=== PATIENT | male | born 1975 | race Caucasian/White ===

== ENCOUNTER 2020-10-30 16:34 | Outpatient (REF) | payer OTHER, SELFPAY | END 2020-10-30 16:35 | disposition home or self-care (01) | LOC: HO.LAB 16:34 | PROVIDERS: Visit Provider Internal Medicine | DX: Z20.828 Contact with and (suspected) exposure to other viral communicable diseases (principal) | CPT/HCPCS: 36415; C9803; U0003 ==

== ENCOUNTER 2020-12-22 14:07 | Outpatient (REF) | payer OTHER, SELFPAY | END 2020-12-22 14:08 | disposition home or self-care (01) | LOC: HO.LAB 14:07 | PROVIDERS: Visit Provider Internal Medicine | DX: Z20.822 Contact with and (suspected) exposure to COVID-19 (principal) | CPT/HCPCS: 36415; C9803; U0003; U0005 ==

== ENCOUNTER 2021-08-21 11:00 | Outpatient (REF) | payer OTHER, SELFPAY ==
[2021-08-21 11:40] LABS: COVID-19 Test Negative (Negative)
== END 2021-08-21 11:01 | disposition home or self-care (01) ==
LOC: HO.LAB 11:00
PROVIDERS: Visit Provider Internal Medicine
DX: Z20.822 Contact with and (suspected) exposure to COVID-19 (principal)
CPT/HCPCS: 36415; 87635; C9803

== ENCOUNTER 2022-03-19 05:39 | Emergency (ER) | payer OTHER, SELFPAY ==
[2022-03-19 05:49] VITALS: BP 148/92; PULSE 104; RESP 18; TEMP 36.8; O2SAT 98; BMI 26.8
[2022-03-19 06:15] VITALS: BP 180/90; PULSE 76; RESP 12; O2SAT 99
--- NOTE | 2022-03-19 06:17 | ECG_ITS ---
Test Reason : CHEST PAIN Blood Pressure : / mmHG Vent. Rate : 086 BPM Atrial Rate : 086 BPM P-R Int : 168 ms QRS Dur : 100 ms QT Int : 384 ms P-R-T Axes : 076 026 029 degrees QTc Int : 459 ms Normal sinus rhythm with sinus arrhythmia Possible Left atrial enlargement Incomplete right bundle branch block Anterior infarct , age undetermined Abnormal ECG No previous ECGs available Referred By: Generic ED Physician Electronically Signed By:Ag Barron
[2022-03-19] MEDS: ondansetron HCL 4 MG/2 ML VIAL IVPUSH (06:19)
[2022-03-19] MEDS: 0.9 % Sodium Chloride 1,000 ML 999 ML IV ×2 (06:19→07:28)
[2022-03-19 06:30] LABS: Basophils Percent Auto 0.2 % (0-2); Hematocrit 43.8 % (42.0-52.0); Hemoglobin 14.4 g/dl (14.0-18.0); Imm Gran Abs Auto 0.09 X10*3/uL (0.00-0.03); Imm Gran Pct Auto 0.7 % (0.0-0.4); Lymphocytes Absolute Auto 0.8 X10*3/uL (1.2-4.9); Lymphocytes Percent Auto 6.6 % (20-40); MANUAL DIFF FLAG SCAN; Mean Corpuscular HGB Conc 32.9 g/dl (31.0-36.0); Mean Corpuscular Hemoglobin 26.1 pg (27.0-33.0); Mean Corpuscular Volume 79.3 fL (80.0-98.0); Monocytes Absolute Auto 0.3 X10*3/uL (0.1-1.2); Monocytes Percent Auto 2.2 % (2-11); Neutrophils Absolute Auto 11.2 x10*3/uL (2.0-8.3); Neutrophils Percent Auto 90.3 % (45-73); Platelet Count 205 X10*3/uL (160-400); Red Blood Count 5.52 X10*6/uL (4.60-5.80); Red Cell Distribution Width 12.3 % (11.0-16.0); SCAN SMEAR FLAG 1; White Blood Count 12.3 X10*3/uL (4.8-10.8)
[2022-03-19 06:48] LABS: Anion Gap 21 (12-20); Blood Urea Nitrogen 14 mg/dL (9-16); Calcium 10.4 mg/dL (8.4-10.2); Carbon Dioxide 22 mmol/L (22-29); Chloride 99 mmol/L (96-108); Creatinine Clr Calc Pharmacy 74.8; Estimated Glomerular Filt Rate 58; Glucose Random 546 mg/dL (60-115); Potassium 5.4 mmol/L (3.3-5.1); Sodium 137 mmol/L (135-145)
[2022-03-19 06:56] LABS: Alanine Aminotransferase 37 U/L (0-40); Albumin Level 4.6 g/dL (3.5-5.0); Alkaline Phosphatase 146 U/L (39-117); Aspartate Amino Transferase 26 U/L (5-37); Bilirubin Direct 0.2 mg/dL (0.0-0.5); Bilirubin Total 0.5 mg/dL (0.0-1.0); Lipase 11 U/L (8-78); Total Protein 8.6 g/dL (6.5-8.0)
[2022-03-19 07:04] LABS: COVID-19 Test Negative (Negative); IDNOW Serial# 55D5AD1C
[2022-03-19 07:11] LABS: SLIDE REVIEW VERIFIED
--- NOTE | 2022-03-19 07:16 | ED.ABDPAIN ---
HPI - Abdominal Pain General Chief Complaint: Nausea/Vomiting/Diarrhea Stated Complaint: Vomiting/Chilld/Abd pain Time Seen by Provider: 03/19/22 05:58 Source: patient Mode of arrival: ambulatory Limitations: no limitations History of Present Illness HPI narrative: 47-year-old male who presents emergency department for evaluation of abdominal pain, nausea, vomiting and diarrhea. The patient is a diabetic and he takes metformin. He states that last night his friend brought him snacks any ate cookies, Ring Dings and candy. He states that around 23:00 hours he had a sudden onset of vomiting. States he vomited multiple times. He then developed abdominal pain. He points to his epigastric area when asked to localize the pain. Describes as a constant, burning sensation which is 10/10 at its worse and is currently 6/10 at the time of evaluation. He states that he had 1 episode of watery diarrheal stool. He did not notice any blood in the stool or his emesis. He denied fever. He did have shaking chills. He denied rhinorrhea, sore throat, cough, chest pain. He states that when he vomits he feels short of breath. He denied dyspnea on exertion. The patient complained of nausea, vomiting and diarrhea. He had urinary frequency with no dysuria. Patient states he has a history of opiate use disorder and is on methadone. He states he missed his methadone several days prior and injected 5 bags of heroin. MD elicited complaint: abdominal pain Onset (ago): hour(s) (8) Pain Consistency: constant Location: epigastric Severity: severe Pain scale (0-10): 1 Quality: burning Radiation: none Migration to: no migration Exacerbating factors: nothing Relieving factors: nothing Associated symptoms: nausea, vomiting, diarrhea, chills and other (Urinary frequency) Related Data Home Medications Medication Instructions Recorded Confirmed metformin 1,000 mg tablet 1 tab PO BID 03/19/22 03/19/22 Previous Rx's Medication Instructions Recorded ondansetron 4 mg disintegrating 4 mg PO Q6-8H PRN #14 tab 03/19/22 tablet Allergies Allergy/AdvReac Type Severity Reaction Status Date / Time No Known Allergies Allergy Verified 03/19/22 06:36 Review of Systems Review of Systems Yes all other systems are reviewed and are negative [facility] Past Medical History [facility] Narrative: Past medical history: Diabetes mellitus, opiate use disorder (heroin). Past surgical history: Cholecystectomy. Social history: He smokes 1/2 pack of cigarettes per day times 39 years. He denies alcohol use. He has history of opiate use disorder and he states that he injected heroin 2 or 3 days prior, used 5 bags. He is in a methadone program. Social History Social History Alcohol intake: never Patient Tobacco Use Status: Current everyday Tobacco user Use of substances other than those prescribed or required for medical reasons: No Advance Directives: No Physical Exam ED Vital Signs: Vital Signs - 24 hr 03/19/22 05:49 03/19/22 06:15 03/19/22 07:37 Temperature 98.3 F 99.3 F Pulse Rate 104 H 76 84 Respiratory Rate 18 12 23 H Blood Pressure 148/92 H 180/90 H 186/98 H Pulse Oximetry 98 99 97 BMI result Body Mass Index 26.8 Const General: cooperative and no acute distress Orientation/consciousness: oriented to person and oriented to place Limitations: no limitations HENMT Head: Yes normal to inspection, Yes normocephalic and Yes atraumatic Ears: external ears normal General nose exam: Normal external nose present Face and sinus: Yes normal facial exam Mouth: Normal oral and palatal mucosa present Throat: Yes posterior oropharynx normal Eyes General: appearance normal, both eyes and all related structures Pupils: Equal, round and reactive pupils present Neck Neck: Yes normal visual inspection, Yes no lymphadenopathy, Yes trachea midline and Yes supple Chest Chest palpation & inspection: normal inspection of the chest and normal palpation of entire chest wall Resp Effort & Inspection: normal respiratory effort and able to speak in complete sentences Auscultation: clear to auscultation bilaterally Cardio Rate: regular rate Rhythm: regular rhythm Heart sounds: S1 normal heart sound present, S2 normal heart sound present and no murmurs GI Inspection: Yes normal to inspection Palpation (GI): Soft to palpation, Tenderness to palpation present (GI) in the epigastrum (Moderate) and no guarding Auscultation: normal bowel sounds General: Yes no CVA tenderness Back/Spine/Pelvis Back: no CVA tenderness Skin General skin exam: no rashes or lesions noted Neuro General: oriented to person and oriented to place Cranial nerves: Yes CN's II-XII intact bilaterally and Yes Equal, round and reactive pupils present Cognition (Neuro): normal cognition Motor exam (neuro): 5/5 motor strength present throughout Extrem General: Yes normal to inspection Psych Appearance: grossly normal Speech and movement: Normal speech and movement present Affect: normal affect Attitude: cooperative Thought process: Normal thought process present Thought content: Normal thought content present Course Course Course Narrative: 47-year-old male who presents emergency department for evaluation of abdominal pain, nausea, vomiting and diarrhea. Patient's symptoms started yesterday at 23:00 hours. Patient also has history of diabetes he did have a high sugar load last night as he ate multiple snacks including cookies, Ring Dings and candy. Vital signs revealed an elevated blood pressure of 148/92, elevated pulse of 102, otherwise normal. The patient did have epigastric tenderness otherwise exam was unremarkable. Differential includes was not limited to gastritis, gastroenteritis, viral syndrome. The laboratory evaluation was ordered. Patient was initially treated with Zofran and IV normal saline with only minimal improvement his pain and his nausea. Patient was ordered to get Reglan 10 mg IV, Benadryl 50 mg IV, morphine 4 mg IV. Patient did have an elevated glucose of 546 and was ordered to get regular insulin 5 units IV. Laboratory evaluation: Elevated potassium 5.4, elevated glucose 146, elevated alk-phos 146. Normal lipase 11. 0840: Point of care glucose did improved to 335. The patient is feeling better, but he is having epigastric tenderness and discomfort therefore he is ordered to get a GI cocktail of viscous lidocaine 10 cc, 10 cc and Maalox 30 cc orally. Patient will be discharged home with a prescription for Zofran. Patient most likely has an acute viral syndrome. MDM - Abdominal Pain Lab Data Result diagrams: 03/19/22 06:22 03/19/22 06:22 Labs: Lab Results 03/19/22 03/19/22 03/19/22 Range/Units 06:22 06:22 06:22 WBC 12.3 H (4.8-10.8) X10*3/uL RBC 5.52 (4.60-5.80) X10*6/uL Hgb 14.4 (14.0-18.0) g/dl Hct 43.8 (42.0-52.0) % MCV 79.3 L (80.0-98.0) fL MCH 26.1 L (27.0-33.0) pg MCHC 32.9 (31.0-36.0) g/dl RDW 12.3 (11.0-16.0) % Plt Count 205 (160-400) X10*3/uL MPV 12.0 (9.4-12.4) fL Immature Gran % (Auto) 0.7 H (0.0-0.4) % Neut % (Auto) 90.3 H (45-73) % Lymph % (Auto) 6.6 L (20-40) % [place] % (Auto) 2.2 (2-11) % Eos % (Auto) 0.0 (0-4) % Baso % (Auto) 0.2 (0-2) % Lymph # (Auto) 0.8 L (1.2-4.9) X10*3/uL [place] # (Auto) 0.3 (0.1-1.2) X10*3/uL Eos # (Auto) 0.0 (0.0-0.4) X10*3/uL Baso # (Auto) 0.0 (0.0-0.2) X10*3/uL Abs Immat Gran (auto) 0.09 H (0.00-0.03) X10*3/uL Absolute Neuts (auto) 11.2 H (2.0-8.3) x10*3/uL Absolute Nucleated RBC 0.000 (0.0-0.012) X10*3/uL Nucleated RBC % (auto) 0.0 (0.0-0.2) /100WBC Smear Tech's Comments VERIFIED Sodium 137 (135-145) mmol/L Potassium 5.4 H (3.3-5.1) mmol/L Chloride 99 (96-108) mmol/L Carbon Dioxide 22 (22-29) mmol/L Anion Gap 21 H (12-20) BUN 14 (9-16) mg/dL Creatinine 1.31 (0.5-1.4) mg/dL Estim Creat Clear Calc 74.8 Estimated GFR 58 POC Glucose (60-115) mg/dL Random Glucose 546 H* (60-115) mg/dL Calcium 10.4 H (8.4-10.2) mg/dL Total Bilirubin 0.5 (0.0-1.0) mg/dL Direct Bilirubin 0.2 (0.0-0.5) mg/dL AST 26 (5-37) U/L ALT 37 (0-40) U/L Alkaline Phosphatase 146 H (39-117) U/L Total Protein 8.6 H (6.5-8.0) g/dL Albumin 4.6 (3.5-5.0) g/dL Lipase 11 (8-78) U/L COVID-19 ([facility]) (Negative) COVID-19 Clin Com 03/19/22 03/19/22 Range/Units 06:36 08:18 WBC (4.8-10.8) X10*3/uL RBC (4.60-5.80) X10*6/uL Hgb (14.0-18.0) g/dl Hct (42.0-52.0) % MCV (80.0-98.0) fL MCH (27.0-33.0) pg MCHC (31.0-36.0) g/dl RDW (11.0-16.0) % Plt Count (160-400) X10*3/uL MPV (9.4-12.4) fL Immature Gran % (Auto) (0.0-0.4) % Neut % (Auto) (45-73) % Lymph % (Auto) (20-40) % [place] % (Auto) (2-11) % Eos % (Auto) (0-4) % Baso % (Auto) (0-2) % Lymph # (Auto) (1.2-4.9) X10*3/uL [place] # (Auto) (0.1-1.2) X10*3/uL Eos # (Auto) (0.0-0.4) X10*3/uL Baso # (Auto) (0.0-0.2) X10*3/uL Abs Immat Gran (auto) (0.00-0.03) X10*3/uL Absolute Neuts (auto) (2.0-8.3) x10*3/uL Absolute Nucleated RBC (0.0-0.012) X10*3/uL Nucleated RBC % (auto) (0.0-0.2) /100WBC Smear Tech's Comments Sodium (135-145) mmol/L Potassium (3.3-5.1) mmol/L Chloride (96-108) mmol/L Carbon Dioxide (22-29) mmol/L Anion Gap (12-20) BUN (9-16) mg/dL Creatinine (0.5-1.4) mg/dL Estim Creat Clear Calc Estimated GFR POC Glucose 335 H (60-115) mg/dL Random Glucose (60-115) mg/dL Calcium (8.4-10.2) mg/dL Total Bilirubin (0.0-1.0) mg/dL Direct Bilirubin (0.0-0.5) mg/dL AST (5-37) U/L ALT (0-40) U/L Alkaline Phosphatase (39-117) U/L Total Protein (6.5-8.0) g/dL Albumin (3.5-5.0) g/dL Lipase (8-78) U/L COVID-19 ([facility]) Negative (Negative) COVID-19 Clin Com See Note Discharge Plan Discharge Clinical Impression: Acute hyperglycemia Abdominal pain Qualifiers: Abdominal location: epigastric Qualified Code(s): R10.13 - Epigastric pain Vomiting Qualifiers: Vomiting type: unspecified Nausea presence: with nausea Qualified Code(s): R11.2 - Nausea with vomiting, unspecified Diarrhea Qualifiers: Diarrhea type: unspecified type Qualified Code(s): R19.7 - Diarrhea, unspecified Patient Disposition: Home, Self-Care Instructions: Viral Syndrome (ED), Abdominal Pain (ED) Additional Instructions: At this time, I believe that you symptoms are caused by a viral infection. Increase your fluid intake. Stay home and rest. Continue taking your metformin. Take Zofran ODT 4 mg pills, 1 pill dissolved in your mouth every 8 hours as needed for nausea and vomiting. Take ibuprofen 200 mg pills, 3 pills every 6 hours as needed for pain. Take Tylenol (acetaminophen) 500 mg pills, 2 pills every 4 to 6 hours as needed for pain. Follow-up with your doctor in 2 days. Please return to the emergency department if your symptoms get worse or if you develop any symptoms that are concerning to you. Prescriptions: New ondansetron 4 mg tablet,disintegrating 4 mg PO Q6-8H PRN (Reason: nausea and vomiting) Qty: 14 0RF No Action metformin 1,000 mg tablet 1 tab PO BID 0RF
[2022-03-19] MEDS: Metoclopramide HCl 10 MG/2 ML VIAL IVPUSH (07:26)
[2022-03-19] MEDS: diphenhydrAMINE HCL 50 MG/ML VIAL IVPUSH (07:28)
[2022-03-19] MEDS: Morphine Sulfate 4 MG/ML CARTRIDGE IVPUSH (07:28)
[2022-03-19] MEDS: Insulin Regular, Human 100 UNIT/ML 3 ML VIAL IVPUSH (07:29)
[2022-03-19 07:37] VITALS: BP 186/98; PULSE 84; RESP 23; TEMP 37.4; O2SAT 97
--- NOTE | 2022-03-19 08:20 | PC.NURSE ---
RN aware POC 335
[2022-03-19 08:21] LABS: Glucose, Whole Blood 335 mg/dL (60-115)
[2022-03-19] MEDS: Lidocaine HCl Viscous 2 % 15 ML SOLUTION 10 ML PO (08:53)
[2022-03-19] MEDS: PHENobarb/Hyoscy/Atropine/Scop 10 ML ELIXIR PO (08:54)
[2022-03-19] MEDS: Magnesium Hydrox/Alum Hydrox 30 ML ORAL.SUSP PO (08:54)
== END 2022-03-19 09:01 | disposition home or self-care (01) ==
PROVIDERS: Emergency Medicine; Emergency Provider Emergency Medicine Emergency Medical Services
DX: E11.65 Type 2 diabetes mellitus with hyperglycemia (principal); R11.2 Nausea with vomiting, unspecified; R35.0 Frequency of micturition; R19.7 Diarrhea, unspecified; R10.13 Epigastric pain; F11.10 Opioid abuse, uncomplicated; E11.9 Type 2 diabetes mellitus without complications; F17.210 Nicotine dependence, cigarettes, uncomplicated; Z20.822 Contact with and (suspected) exposure to COVID-19; Z71.6 Tobacco abuse counseling; Z79.899 Other long term (current) drug therapy; Z79.84 Long term (current) use of oral hypoglycemic drugs
CPT/HCPCS: 36415; 80048; 80076; 82947; 83690; 85025; 87635; 93005; 96361; 96374; 96375; 99284; J1200; J2270; J2405; J2765

== ENCOUNTER 2023-08-30 12:35 | Emergency (ER) | payer OTHER, SELFPAY ==
--- NOTE | ~2023-08-30 | US_ITS ---
EXAMINATION: US VENOUS ULTRASOUND WITH DOPPLER LOWER EXTREMITY, RIGHT CLINICAL INFORMATION: Right calf pain and swelling COMPARISON: None available. TECHNIQUE: Ultrasound of the deep veins is performed from the hip to the calf with compression sonography and color and pulse Doppler assessment. Spectral analysis with color-flow imaging is performed. FINDINGS: There is normal venous compression and respiratory variation and augmented flow. The visualized common femoral vein, superficial femoral vein, profunda femoral vein, popliteal vein, and the trifurcation region shows no evidence of deep venous thrombosis. There is no significant popliteal fossa cyst. US/US venous duplex LE RT IMPRESSION: No DVT demonstrated in the right lower extremity.
[2023-08-30 12:57] VITALS: BP 145/89; PULSE 92; RESP 18; TEMP 36.3; O2SAT 94; BMI 31.1
--- NOTE | 2023-08-30 12:58 | ED.EXTPRO ---
HPI - Extremity Problem General Chief complaint: General Medical Stated complaint: Bilateral foot/leg swelling Time Seen by Provider: 08/30/23 13:41 Source: patient and family Mode of arrival: ambulatory Limitations: no limitations History of Present Illness HPI Narrative: Patient comes to the emergency room complaining of right lower extremity erythema and swelling. Patient states that he has no pain, states that his leg has been feeling more warm than usual. Denies any injury. Patient denies any calf pain. Related Data Home Medications Medication Instructions Recorded Confirmed metformin 1,000 mg tablet 1 tab PO BID 03/19/22 03/19/22 Previous Rx's Medication Instructions Recorded ondansetron 4 mg disintegrating 4 mg PO Q6-8H PRN nausea and 03/19/22 tablet vomiting #14 tabs cephalexin 500 mg capsule 500 mg PO BID #14 caps 08/30/23 doxycycline hyclate 100 mg tablet 100 mg PO BID #14 tabs 08/30/23 Allergies Allergy/AdvReac Type Severity Reaction Status Date / Time No Known Allergies Allergy Verified 08/30/23 12:57 Review of Systems Review of Systems: Constitutional : No Weight loss, No Fever, No Chills, No Night Sweats, No Fatigue, No Malaise ENT/Mouth : No Hearing loss, No Ear Pain, No Nasal Congestion, No Sinus Pain, No Hoarseness, No sore throat, No Rhinorrhea, No Swallowing Difficulty Eyes: No Eye Pain, No Swelling, No Redness, No Foreign Body, No Discharge, No Vision Changes Cardiovascular : No Chest Pain, No SOB, No Dyspnea on Exertion, No Orthopnea, No Edema, No Palpitations Respiratory : No Cough, No Sputum, No Wheezing, No Smoke Exposure, No Dyspnea Gastrointestinal : No Nausea, No Vomiting, No Diarrhea, No Constipation, No abdominal Pain, No Hematochezia, No Melena Genitourinary : no irregular bleeding, No Dysuria, No Urinary Frequency, No Hematuria, No Urinary Incontinence, No Urgency, No Flank Pain, No Urinary Flow Changes, No Hesitancy Musculoskeletal : No joint pain, No Myalgias, No Joint Swelling Skin : Complaining of right lower extremity redness an additional warmth to touch Neuro : No Weakness, No Numbness, No Paresthesias, No Loss of Consciousness, No Dizziness, No Headache Psych : No Anxiety/Panic, No Depression, No SI/HI/AH/VH, No Social Issues, Heme/Lymph: No Bruising, No Bleeding,No Lymphadenopathy Endocrine : No Polyuria, No Polydipsia, No Temperature Intolerance [facility] Past Medical History Medical History (Updated 08/30/23 @ 14:56 by Myra Osborne MD) Type 2 diabetes mellitus Social History Social History Alcohol intake: never Patient Tobacco Use Status: Current everyday Tobacco user Advance Directives: No Advance Directives Information Provided: Yes Physical Exam Vital Signs: Vital Signs: Last Vital Signs Temp 97.9 F 08/30/23 13:50 Pulse 84 08/30/23 13:50 Resp 16 08/30/23 13:50 BP 127/76 08/30/23 13:50 Pulse Ox 95 08/30/23 13:50 O2 Del Method Room Air 08/30/23 13:50 BMI result Body Mass Index 31.1 Const: Other: Appearance: Alert. Oriented X3. No acute distress. Eyes: Pupils equal, round and reactive to light. ENT: Pharynx normal. Neck: Normal inspection. Neck supple. No lymph nodes noted. No crepitus CVS: Normal heart rate and rhythm. Pulses normal. Normal S1 and S2 Respiratory: No respiratory distress. Breath sounds normal. No Wheezing. No rales Abdomen: Soft and nontender. No rigidity. No distention. Skin: Skin warm and dry. Normal skin color. Normal skin turgor. Extremities: Right lower extremity seems a bit more swollen compared to the left lower extremity. Right lower extremity is a bit erythematous, nontender but warm to touch Neuro: Oriented X 3. No motor deficit. No sensory deficit. Moving all extremities. No slurred speech. CN 2 through 12 grossly intact Psych: calm, cooperative, normal affect Course Course Course Narrative: Patient complains of bilateral leg swelling that began about a week ago but is worse on the right and the left leg no longer bothers him but the right leg remains swollen No chest pain or shortness of breath denies any fever There is tenderness to the right calf as well as some redness in the pretibial area, left leg is nontender Right leg ultrasound ordered, labs ordered This is rapid medical exam and triage pending full evaluation by ER provider with full history and physical, evaluation of any results and disposition Medical Decision Making Medical Decision Making [facility] Narrative: -my interpretation of venous ultrasound: No obvious DVT. However, the patient did not want to stay for the official report -patient did not want to stay for any blood work -patient likely has cellulitis, medication/antibiotic sent to patient's pharmacy -I was informed by the patient's nurse Differential Diagnosis Differential Diagnoses: The differential diagnosis associated with the presentation includes (DVT, CHF, cellulitis) Lab Data [facility] Lab Attestation statement: I reviewed the patient's lab results. Labs: Lab Results 08/30/23 Range/Units 14:35 POC Glucose 134 H (60-115) mg/dL Independent Interpretation I performed an independent interpretation of an: Ultrasound Radiology Impression Discussion of test interpretation with radiology: I have reviewed the radiologist's reading. Radiologist Impression: FINDINGS: There is normal venous compression and respiratory variation and augmented flow. The visualized common femoral vein, superficial femoral vein, profunda femoral vein, popliteal vein, and the trifurcation region shows no evidence of deep venous thrombosis. There is no significant popliteal fossa cyst. US/US venous duplex LE RT IMPRESSION: No DVT demonstrated in the right lower extremity. Discharge Plan Discharge Clinical Impression: Cellulitis of leg Patient Disposition: Home, Self-Care Instructions: Cellulitis (ED) Additional Instructions: Please follow-up with your primary care physician tomorrow. If you have any worsening or new symptoms, please return to the emergency room or call 911 Prescriptions: New cephalexin 500 mg capsule 500 mg PO BID Qty: 14 0RF doxycycline hyclate 100 mg tablet 100 mg PO BID Qty: 14 0RF No Action metformin 1,000 mg tablet 1 tab PO BID ondansetron 4 mg tablet,disintegrating 4 mg PO Q6-8H PRN (Reason: nausea and vomiting) Qty: 14 0RF
[2023-08-30 13:50] VITALS: BP 127/76; PULSE 84; RESP 16; TEMP 36.6; O2SAT 95
[2023-08-30 14:40] LABS: Glucose, Whole Blood 134 mg/dL (60-115)
--- NOTE | 2023-08-30 14:52 | PC.NURSE ---
pt requesting to leave NAVEEN edgar notified. declining repeat VS. no IV in. no respiratory distress.
== END 2023-08-30 15:21 | disposition home or self-care (01) ==
PROVIDERS: Emergency Provider Emergency Medicine
DX: L03.115 Cellulitis of right lower limb (principal); M79.604 Pain in right leg; M79.89 Other specified soft tissue disorders; E11.9 Type 2 diabetes mellitus without complications; F17.200 Nicotine dependence, unspecified, uncomplicated; Z79.84 Long term (current) use of oral hypoglycemic drugs; Z79.899 Other long term (current) drug therapy
CPT/HCPCS: 82947; 93971; 99284